=== PATIENT | male | born 1965 | race Caucasian/White ===

== ENCOUNTER → 2016-11-27 | Outpatient (CLI) | payer BC ==
[~2016-11-27] MED LIST: AUGMENTIN875 MG PO; BACITRACIN15 G1 TP; FLAGYL-DPS500 MG PO; LAMISIL250 MG PO; LEVOTHYROXINE150 MCG PO; MAALOX DPS30 ML PO; SPRYCEL100 MG PO; TYLENOL DPS325 MG PO; ULTRAM DPS50 MG PO; ZOFRAN ODT4 MG PO
== END | disposition home or self-care (01) ==
LOC: RAD.S 10:46
DX: R10.9 Unspecified abdominal pain (principal); K57.32 Diverticulitis of large intestine without perforation or abscess without bleeding; N20.0 Calculus of kidney; R31.9 Hematuria, unspecified; N23 Unspecified renal colic

== ENCOUNTER 2016-11-30 14:58 | Inpatient (IN) | payer BC ==
[~2016-11-30] VITALS: Ht 177.8 cm; Wt 105.9 kg
--- NOTE | ~2016-11-30 | CO ---
ADMIT: 11/30/2016 RM/LOC: 426 [facility] MR#: [id number] [address] [address] [facility] [place] [address] Consultation SEX: M AGE: 50 : 1965 Corrected: 12/02/2016 1243 djs DATE OF CONSULTATION: 12/01/2016 ATTENDING PHYSICIAN: Buck Sampson CONSULTING PHYSICIAN: Jeffrey Soto MD HISTORY OF PRESENT ILLNESS: The patient is a 50-year-old male, who had a couple bowel, it sounds like of diverticulitis in the past, comes in with about a 2-week history of left lower quadrant pain which has gotten more severe, was placed on oral antibiotics, had not gotten better, came to emergency room with a mildly elevated white blood cell count, and with a CT scan evidence of diverticulitis and a small peridiverticular abscess, was admitted for IV antibiotics, pain control, hydration. PAST SURGICAL HISTORY: Includes some type of exploratory laparoscopy, lysis of adhesions for bowel obstruction years ago. He had an appendectomy in the past as well. He had some type of parathyroid or thyroid surgery in the past. He did have a colonoscopy this last winter by Dr. Sampson. ALLERGIES: HE HAS NO ALLERGIES. SOCIAL HISTORY: He is a nondrinker and nonsmoker. MEDICATIONS: He takes thyroid replacement and currently the antibiotics that he had been taking at home. FAMILY HISTORY: Noncontributory. PHYSICAL EXAMINATION: VITAL SIGNS: He has a low grade temp. HEART: His heart is regular. LUNGS: Clear. ABDOMEN: Soft, nondistended, nontender to palpation left lower quadrant. EXTREMITIES: No peripheral edema. NEUROLOGIC: No focal neurologic deficits. ASSESSMENT AND PLAN: The patient is a 50-year-old with recurrent sigmoid ADMIT: 11/30/2016 RM/LOC: 426 [facility] MR#: [id number] [address] [address] [place] [address] [place] [id number] Consultation SEX: M AGE: 50 : 1965 diverticulitis with peridiverticular abscess. He is currently on IV Vanco and Zosyn. He does feel better today after being admitted about 12 hours ago. I did explain to him that he is headed for surgery hopefully electively if he does not respond to IV antibiotics here in the next 48 to 72 hours, he may need reimaging and possible abscess drainage versus laparotomy with Kelvin's pouch and colostomy. If he does respond to the IV antibiotics, we can discharge him on oral antibiotics and hopefully get him to clinical state where he can be treated with a bowel prep, and electively undergo a laparoscopic versus open sigmoid colectomy for his recurrent sigmoid diverticulitis. This was discussed with the patient and Dr. Sampson. Jeffrey Soto MD/ ananya JOB #: [id number] CC: Buck Sampson, Attending Physician Buck Sampson, Family Physician Corrected: 12/02/2016 1243 craig
[~2016-11-30 14:58] MED LIST changes: -FLAGYL-DPS500 MG PO; -LEVOTHYROXINE150 MCG PO; -MAALOX DPS30 ML PO; -TYLENOL DPS325 MG PO; -ZOFRAN ODT4 MG PO
--- NOTE | 2016-12-02 01:33 | ER ---
ADMIT: 11/30/2016 RM/LOC: 426 [facility] MR#: [id number] [address] [address] [place] MACHADO [facility] [place] [address] Emergency Room Report SEX: M AGE: 50 : 1965 DATE: 11/30/2016 TIME: 1458 hours. PRIMARY CARE: Dr. Sampson. Please refer to my T-sheet for complete H and P. HISTORY OF PRESENT ILLNESS: Briefly, the patient is a 50-year-old who comes in with a known history of recurrent diverticulitis. He has been on antibiotics for sounds like 10 days, it has not improved. He had a CT scan done Wednesday, has not had the results, but the pain is not getting better and in fact he thinks it is worse. He has not been able to eat very well and his bowels have been moving but bothering him. PHYSICAL EXAMINATION: VITAL SIGNS: Blood pressure 166/97, pulse 127, respirations 18, temperature 100.4, sat 98%. GENERAL: In no acute distress. HEENT: Grossly normal. LUNGS: Clear. HEART: Tachy. No murmur. ABDOMEN: Soft, tender in the left lower quadrant. SKIN: No rash. EMERGENCY DEPARTMENT COURSE: We did the whole sepsis pathway. He received sepsis fluid per the protocol. He was given Zofran 4 mg IV, Motrin 400 p.o. as he refused to take Tylenol due to his history of CML. His CT was reviewed from the , revealed diverticulitis with a 2.6 cm abscess, left lower quadrant. CBC was normal except for a white count of 12.4, hemoglobin 13.4, and platelets 290. Chemistries were normal except phos of 2.1. Cardiac enzymes negative. Lactate was normal. We started Zosyn and vanco on the sepsis protocol for intraabdominal abnormalities. I talked to Dr. Hirsch, will admit to the hospital. ASSESSMENT: 1. Acute diverticulitis with abscess, failed outpatient therapy. 2. Early sepsis. PLAN: Admit to the hospital. Juan Alberto Cardenas MD/ ananya JOB #: [id number] CC: Buck Sampson DO, Attending Physician Buck Sampson DO, Family Physician
--- NOTE | 2016-12-09 10:47 | CO ---
ADMIT: 11/30/2016 RM/LOC: 426 [facility] MR#: [id number] 2620 [facility] [address] [place], [place] [address] [facility]4 [place] [address] Consultation SEX: M AGE: 51 : 1965 DATE OF CONSULTATION: 12/04/2016 ATTENDING PHYSICIAN: Buck Sampson CONSULTING PHYSICIAN: Juanis Priest MD REASON FOR CONSULTATION: Acute kidney injury. HISTORY OF PRESENT ILLNESS: The patient is a pleasant 51-year-old gentleman, who has been having a rough last three weeks or so. He had a bout of diverticulitis that was treated with antibiotics as an outpatient. Then, he had another round of antibiotics about a week and a half ago. However, his symptoms continue to worsen and he presented to the hospital four days ago. He was admitted because of early sepsis. His creatinine upon admission was 1.3 and did improve to 1.1 following hydration. It was 1.6 yesterday and 3.2 today. He continues to have nausea, although his abdominal pain is somewhat better. Denies any vomiting or diarrhea. Denies any urinary complaints. Pertinent nephrotoxic exposures include vancomycin and a high vancomycin trough of around 30 yesterday. He also has been receiving Motrin 400 mg and has had three doses of that since admission. He denies any breathing complaints. Denies any cardiac or respiratory complaints. REVIEW OF SYSTEMS: A complete review of systems is negative in detail except as mentioned in history of present illness. PAST MEDICAL HISTORY: 1. Diverticulitis. 2. Hypothyroidism. 3. Hyperparathyroidism, status post parathyroidectomy. 4. CML, followed by Oncology. 5. Thyroidectomy. MEDICATIONS: 1. Synthroid. 2. Sprycel. He is getting vancomycin and Zosyn for antibiotics and is also on IV Pepcid. SOCIAL HISTORY: He is . Lives with his family. He has two daughters. He is employed. Denies any tobacco, alcohol, or recreational drug use. FAMILY HISTORY: No family history of chronic kidney disease or renal replacement therapy. PHYSICAL EXAMINATION: VITAL SIGNS: Temperature 98.6 Fahrenheit, pulse 84, blood pressure 116/86, saturating 94% on room air. GENERAL: He is comfortable. HEENT: Head is nontraumatic and normocephalic. Extraocular movements are ADMIT: 11/30/2016 RM/LOC: 426 [facility] MR#: [id number] [address] [address] [facility] [place] [address] Consultation SEX: M AGE: 51 : 1965 intact. No conjunctival pallor. Dry mucosa. CHEST: Clear to auscultation. CVS: Regular rhythm. S1 and S2 heard. No rubs, murmurs, or gallops. ABDOMEN: Soft. Tenderness in the left lower quadrant. EXTREMITIES: No edema. SKIN: No rash or nodules. NEUROLOGIC: Alert, awake, and oriented x3. He is able to move all extremities. PSYCHIATRIC: Affect and memory within normal limits. MUSCULOSKELETAL: Major joints within normal limits. Range of motion within normal limits. LABORATORY DATA: Reviewed. BMP with sodium 142, potassium 3.3, creatinine is 3.2. It is elevated from 1.6 yesterday. Trend of creatinine as outlined in HPI above. Calcium 7.2. Vancomycin trough yesterday was 22. Hemoglobin 10.6. His CAT scan last week did not show any evidence of hydronephrosis. He had sigmoid diverticulitis along with a left nonobstructing kidney stone. ASSESSMENT AND PLAN: 1. Acute kidney injury-this is likely secondary to nephrotoxic acute tubular necrosis. Pertinent nephrotoxins include NSAIDs, vancomycin in the setting of dehydration. I will check urine studies to evaluate further. Monitor his kidney function closely and continue supportive care for the time being. Discussed the possibility of renal replacement therapy with him if needed and he is agreeable to that. I will also have him take his anti-nausea medications around the clock in order to provide symptomatic treatment. 2. Medication management-I will discontinue his Lovenox and change him to heparin. I have also discussed his antibiotic dosing with pharmacy. We plan to check a random vancomycin level tomorrow in order to assist with dosing of his antibiotics. Thank you for this consultation. Do not hesitate to contact with any questions. Juanis Priest MD/ ananya JOB #: [id number] CC: Buck Sampson, Attending Physician Buck Sampson, Family Physician
[2016-12-09] MEDS ORDERED: LEVOTHYROXINE150 MCG PO (11:48)
[2016-12-09] MEDS ORDERED: FLAGYL-DPS500 MG PO (11:48)
[2016-12-09] MEDS ORDERED: MAALOX DPS30 ML PO (11:49)
[2016-12-09] MEDS ORDERED: ZOFRAN ODT4 MG PO (11:49)
[2016-12-09] MEDS ORDERED: TYLENOL DPS325 MG PO (11:49)
--- NOTE | 2016-12-16 08:17 | HP ---
ADMIT: 11/30/2016 RM/LOC: [address] [place] [address] MR#: [id number] [address] [place] [address] [place] [facility] [address] [place] [address] History and Physical SEX: M AGE: 50 : 1965 DATE OF SERVICE: 12/01/2016 REASON FOR HOSPITALIZATION: Acute abdominal pain, early sepsis, diverticulitis. HISTORY OF PRESENT ILLNESS: This is a pleasant 50-year-old male patient, who has recurrent diverticulitis. We have been treating this as an outpatient and in fact late last week he underwent a CAT scan of his abdomen to further investigate. He presented yesterday on Wednesday with abdominal pain, and in the emergency room he was felt to have early sepsis and acute diverticulitis. He is now being admitted for further antibiotic therapy. PAST MEDICAL HISTORY: He has a history of diverticulitis, hypothyroidism, thyroidectomy, hyperparathyroidism, parathyroidectomy, and CML. MEDICATIONS: His current medications include: 1. Synthroid. 2. Sprycel for CML and he has been using [employer]. 3. He is also currently since being hospitalized on vancomycin and Zosyn along with IV Pepcid. SOCIAL HISTORY: He is independent, , and gainfully employed. Does not use tobacco. FAMILY HISTORY: Noncontributory. REVIEW OF SYSTEMS: Abdominal pain, nausea. No current chest pain, shortness of breath, cough, sputum production, or bleeding. PHYSICAL EXAMINATION: VITAL SIGNS: On exam, temperature 99.7, blood pressure 131/73. Otherwise, vital signs within healthy range. ADMIT: 11/30/2016 RM/LOC: 6 [facility] MR#: [id number] [address] [place] [address] [place] CUI [address] [facility] [place] [address] History and Physical SEX: M AGE: 50 : 1965 ABDOMEN: He has a tender abdomen. HEART: Regular. LUNGS: Clear. EXTREMITIES: Without edema. LABORATORY DATA: White count is 12.5, hemoglobin is 11.8. IMPRESSION: Recurrent diverticulitis with suspicious 2.6 cm abscess and left nephrolithiasis. PLAN: He is admitted. He will receive antibiotic therapy. Surgical consultation and supportive management such as nausea and pain control. Buck Sampson DO/ ananya JOB #: [id number] CC: Buck Sampson, Attending Physician Buck Sampson, Family Physician
--- NOTE | 2016-12-18 10:18 | CO ---
ADMIT: 11/30/2016 RM/LOC: 426 [facility] MR#: [id number] [address] [address] [facility] C[facility] [place] [address] Consultation SEX: M AGE: 50 : 1965 DATE OF CONSULTATION: 12/01/2016 ATTENDING PHYSICIAN: Buck Sampson CONSULTING PHYSICIAN: Jeffrey Soto MD REASON FOR CONSULTATION: Abdominal pain, probable diverticulitis. HISTORY OF PRESENT ILLNESS: Dirk is a very pleasant, 50-year-old male, who two weeks ago noticed sudden sharp abdominal pain in his left lower quadrant. This doubled him over and made him very nauseous. Because of his pain he did not have an appetite and also made him dry heave a lot. He denies any emesis, diarrhea, constipation, dark or bloody stools. He has had several of these attacks before in his life, but this is the worst. His first one he believes was back in June of last year that was just some mild discomfort, but healed with oral antibiotics. He does note that he has a history of diverticulosis as this was evident on colonoscopy Dr. Sampson performed. Given his symptoms, he first sought medical attention at his primary care physician's office but because of the timing of his pain, he wanted more aggressive treatment and so he came in through the emergency room yesterday. A full workup revealed acute diverticulitis with abscess formation in the left lower quadrant and so he has been admitted with IV antibiotic therapy. PAST MEDICAL HISTORY: Significant for: 1. Diverticulosis. 2. CML diagnosed 2.5 years ago. 3. Hypothyroidism. PAST SURGICAL HISTORY: 1. Exploratory laparoscopy for ischemic mesenteritis. 2. Thyroidectomy. 3. Appendectomy. 4. T and A. ALLERGIES: NO KNOWN DRUG ALLERGIES. MEDICATIONS: Well documented in chart. FAMILY HISTORY: The patient's mother has issues, however, he is unsure specifically what they are. SOCIAL HISTORY: The patient is , but denies any alcohol, tobacco, or illicit drug use. REVIEW OF SYSTEMS: CONSTITUTIONAL: The patient does state he has been running a low-grade fever for the last week or so. He denies any weight changes. The rest of a comprehensive 10-point review of systems was performed and all other systems are negative. GENITOURINARY: The patient has noticed painful urination, but he believes ADMIT: 11/30/2016 RM/LOC: 426 [facility] MR#: [id number] [address] [address] [address] CUI [address] [place] [address] Consultation SEX: M AGE: 50 : 1965 this is from dehydration and the pain he is experiencing in his left lower quadrant. He denies any urinary changes. PHYSICAL EXAMINATION: GENERAL: The patient is in no acute distress. He is alert and oriented. HEENT: Head is normocephalic and atraumatic. EOMS are intact. Conjunctivae free of icterus, erythema, or pallor. Pinnae, free of deformities. Nose, midline. No tracheal deviation. NECK: Supple. SKIN: Negative for jaundice, clubbing, edema, pallor, or cyanosis. LUNGS: Normal respiratory effort. HEART: Distal pulses intact. Regular rate and rhythm. ABDOMEN: Soft, nondistended, tender in left lower quadrant. NEURO: Grossly intact. LABORATORY DATA: White blood cell count 12.5, hemoglobin 11.8, lactic acid 1.0. DIAGNOSTIC IMAGING: CT of abdomen and pelvis 4 days ago revealed sigmoid diverticulitis with probable 2.6 cm abscess. ASSESSMENT: Diverticulitis. PLAN: We will continue IV antibiotic therapy and conservative measures while in the hospital. I will start him on clears. Given the numerous episodes that he has been having, we are more aggressive to consider surgery specifically laparoscopic sigmoidectomy for this disease part of his colon, but we will be sure to follow up with this as an outpatient basis. In the meantime, we will continue IV antibiotic therapy, get him on clears, and monitor this abscess formation to see if it will grow. I discussed this plan with the patient and his , who is present. They are in agreement of this plan, I had all their questions answered, and would like to proceed. Thank for the consultation of this patient. NILDA Franklin / Jeffrey Soto MD / ananya JOB #: [id number] CC: Buck Sampson, Attending Physician Buck Sampson, Family Physician
--- NOTE | 2017-02-08 08:35 | DS ---
ADMIT: 11/30/2016 RM/LOC: 426 [facility] MR#: [id number] [address] [address] [facility] C[facility] [place] [address] Discharge Summary SEX: M AGE: 50 : 1965 ADMISSION DATE: 11/30/2016 DISCHARGE DATE: 12/08/2016 REASON FOR HOSPITALIZATION: Diverticulitis. HISTORY: Patient presented with abdominal pain, not resolving with outpatient oral efforts in treatment of acute diverticulitis. HOSPITAL COURSE: He was admitted to the hospital, placed on IV antibiotic therapy and restricted diet. We had Dr. Soto see him who recommended that we calm his event of diverticulitis before considering surgical resection. He did have some acute kidney injury during his hospital stay and Dr. Priest saw the patient and assisted with his cares. Ultimately his kidney function improved and stabilized. His abdominal pain and discomfort improved and we were able to advance his diet to the point where he was dismissed home on continued oral antibiotic, dietary restrictions, and followup arrangements. He was to return to see me in 5 to 7 days. He was to see Dr. Priest and Dr. Soto as an outpatient. He was to continue Flagyl 500 mg p.o. t.i.d. FINAL DIAGNOSES: 1. Acute diverticulitis with abscess. 2. Acute kidney injury. 3. Hypertension. 4. Hypokalemia. Buck Sampson DO/ ananya JOB #: [id number] CC: Buck Sampson DO, Attending Physician Buck Sampson DO, Family Physician
== END 2016-12-08 16:42 | disposition home or self-care (01) | DRG 871 ==
LOC: ER 14:58 → 4PCU 16:20
PROVIDERS: ADMIT Internal Medicine
DX: A41.9 Sepsis, unspecified organism (principal); N17.0 Acute kidney failure with tubular necrosis; K57.20 Diverticulitis of large intestine with perforation and abscess without bleeding; C92.10 Chronic myeloid leukemia, BCR/ABL-positive, not having achieved remission; E86.0 Dehydration; E89.0 Postprocedural hypothyroidism; E21.3 Hyperparathyroidism, unspecified; N20.0 Calculus of kidney; E87.6 Hypokalemia